=== PATIENT | female | born 1935 | race African-American/Black ===

== ENCOUNTER 2021-06-09 01:12 | Emergency (ER) | payer MEDICARE, BC ==
[~2021-06-09] VITALS: Ht 152.4 cm; Wt 65.0 kg
[~2021-06-09 01:12] MED LIST: AMLO5TAB4 PO; ASPI-986 PO; BENA40TA9 PO; NEBI5TAB3 PO
[2021-06-09] MEDS ORDERED: HYDROCODONE/ACETAMINOPHEN 5/325MG TABLET PO ONE (01:45)
[2021-06-09 03:09] LABS: BASOPHILS % 0.3 % (0.0-2.0); EOSINOPHILS % 0.6 % (0.0-5.0); HEMATOCRIT. 36.8 % (36.0-48.0); HEMOGLOBIN. 12.3 g/dL (12.0-16.0); LYMPHOCYTES % 13.9 % (20.0-50.0); MEAN CORPUSCULAR HEMOGLOBIN 28.7 pg (28.0-32.0); MEAN CORPUSCULAR VOLUME 85.7 fL (81.0-99.0); MEAN PLATELET VOLUME 7.6 fl (7.4-10.4); MONOCYTES % 8.2 % (2.0-8.0); PLATELET 192 x1000/uL (130-400); RED BLOOD CELL COUNT 4.29 mill/uL (4.2-5.4); RED CELL DISTRIBUTION WIDTH 15.8 % (11.6-14.6)
[2021-06-09 03:17] LABS: CHLORIDE 101 mEq/L (98-107)
[2021-06-09 05:04] VITALS: BP 146/60
== END 2021-06-09 05:34 | disposition home or self-care (01) ==
LOC: ER 01:12
DX: M54.2 Cervicalgia (principal); I11.9 Hypertensive heart disease without heart failure; Z95.0 Presence of cardiac pacemaker; Z88.0 Allergy status to penicillin; Z79.82 Long term (current) use of aspirin; Z79.899 Other long term (current) drug therapy
CPT/HCPCS: 36415; 71045; 80053; 83880; 84484; 85025; 93005; 99285